=== PATIENT | female | born 1985 | race Caucasian/White ===

== ENCOUNTER → 2023-02-17 08:46 | Outpatient (CLI) | payer OTHER, SELFPAY ==
--- NOTE | ~2023-02-17 | US_ITS ---
Limited abdominal ultrasound Clinical history left lower quadrant swelling or mass TECHNIQUE: Targeted sonographic imaging at the area of the clinical concern at the umbilical area and left lower quadrant was performed. FINDINGS: No discrete mass or hernia identified. No fluid collection or cyst seen. No definite sonogr aphic abnormality identified in the region scanned. IMPRESSION: No definite sonographic correlate seen at the area of palpable concern. Consider CT or MR to further there is soft tissue mass or hernia, as indicated. Reviewed, dictated and finalized at location . [employer]IST IMPRESSION: No definite sonographic correlate seen at the area of palpable concern. Conside r CT or MR to further there is soft tissue mass or hernia, as indicated.
== END ==
PROVIDERS: PCP Nurse Practitioner Family; Visit Provider Nurse Practitioner Family
DX: R19.04 Left lower quadrant abdominal swelling, mass and lump (principal)
CPT/HCPCS: 76705

== ENCOUNTER → 2023-03-08 09:20 | Outpatient (CLI) | payer OTHER, SELFPAY ==
--- NOTE | ~2023-03-08 | CT_ITS ---
Non-contrast CT scan of the Abdomen and Pelvis Clinical indication: Abdominal pain Technique: 2.5 mm axial scans were obtained through the abdomen and pelvis without intravenous or or al contrast. Dose reduction technique was used on this scan by utilizing automated exposure control a nd iterative reconstruction technique. The dose-length product (DLP) was 298.85 mGy-cm. Findings: Images through the lung bases reveal no abnormalities. Punctate nonobstructing left renal stone present. No right renal stone. No ureteral stone or hydronep hrosis seen on either side. The liver, spleen, pancreas, gallbladder, and adrenals appear normal. There is no aortic aneurysm. There is no evidence of bowel obstruction. Normal appendix. Images through the pelvis were performed. There is no evidence of ascites or lymphadenopathy. Urinary bladder unremarkable. No adnexal mass evident. Impression: Punctate nonobstructing left renal stone. Reviewed, dictated and finalized at [facility]. [employer] Impression: Punctate nonobstructing left renal stone.
== END ==
PROVIDERS: PCP Nurse Practitioner Family; Visit Provider Nurse Practitioner Family
DX: R10.32 Left lower quadrant pain (principal); N20.0 Calculus of kidney
CPT/HCPCS: 74176